=== PATIENT | male | born 1990 | race Caucasian/White ===

== ENCOUNTER 2021-12-19 16:15 | Emergency (ER) | payer BC, SELFPAY ==
[2021-12-19 16:17] VITALS: BP 148/84; PULSE 91; RESP 16; TEMP 36.3; O2SAT 99
--- NOTE | 2021-12-19 16:38 | ED.GENADULT ---
HPI - General Adult General Chief complaint: Unspecified Stated complaint: muscles all cramping Time Seen by Provider: 12/19/21 16:26 Source: patient Mode of arrival: ambulatory Limitations: no limitations History of Present Illness HPI narrative: 31-year-old male presents to the emergency room secondary to an episode where he felt like he could not breathe. He is from the [facility] and him and his body were down in this part of the [place] playing golf over the weekend. He states that they drink a lot of beer while they were playing golf. They were in the process of going home when he had an episode where he felt like he just could not breathe. He then he noticed he began having tingling to his arms and legs and his fingers began to contract. He states he tried to slow down his breathing take some deep breaths and drink more fluid. It seemed to resolve and he had 2 episodes like that today so he got concerned and did not feel safe driving home until he stopped emergency room to be checked out. He denies having episodes like this in the past. He has no medical history at all. No cough congestion no chills or fevers. Denies shortness of breath. Related Data Allergies Allergy/AdvReac Type Severity Reaction Status Date / Time No Known Allergies Allergy Verified 12/19/21 16:19 Review of Systems Review of Systems: CONSTITUTIONAL: Denies fever, chills, or sweats. EYES: Denies visual changes, redness, or discharge. ENT: Denies rhinorrhea, congestion, sore throat, or otalgia. CARDIOVASCULAR: Denies chest pain, palpitations, or edema. RESPIRATORY: Denies cough or dyspnea. GASTROINTESTINAL: Denies abdominal pain, nausea, vomiting, or diarrhea. GENITOURINARY: Denies dysuria or hematuria. SKIN: Denies rash or itching. MUSCULOSKELETAL: Denies back pain, joint pain, or myalgia. NEUROLOGIC: Denies headache, numbness, or weakness. PSYCHIATRIC: Denies anxiety or depression. [facility] Social History Social History (Updated 12/19/21 @ 16:50 by Jt Mcfadden DO) Alcohol intake: current Substance use type: marijuana Exam Narrative: APPEARANCE: Well appearing, no pain in distress, well-nourished. Head normocephalic atraumtaic. EYES: PERRLA/EOMI, conjunctivae very clear. NOSE: Normal no drainage EARS:TMS clear [place] Cha, with good light reflex. THROAT: Pharynx clear, no exudate. NECK: Supple. No adenopathy, no masses. RESPIRATORY: Airway patent, repsirations nonlabored. Clear to auscultation bilaterally, no rales, rhonchi, wheezing. CARDIOVASCULAR: Regular rate and rhythm without murmurs rubs or gallops. ABDOMINAL: Soft, nontender, nondistended, no hepatosplenomegally MUSCULOSKELETAl: Moves all extremities. Strenght/ROM intact, No edema, No calf tenderness. NEURO: Alert. Cranial nerves II through XII intact. Good gait. Good coordination SKIN:: Warm, dry. Normal Color PSYCHIATRIC: Normal affect/mood, normal interaction with parents. Course Vital Signs Vital signs: Vital Signs Temperature 97.4 F L 12/19/21 16:17 Pulse Rate 91 12/19/21 16:17 Respiratory Rate 16 12/19/21 16:17 Blood Pressure 148/84 H 12/19/21 16:17 Pulse Oximetry 99 12/19/21 16:17 Temperature 97.4 F L 12/19/21 16:17 Pulse Rate 91 12/19/21 16:17 Respiratory Rate 16 12/19/21 16:17 Blood Pressure 148/84 H 12/19/21 16:17 Pulse Oximetry 99 12/19/21 16:17 Medical Decision Making MDM Narrative Medical decision making narrative: Patient's presentation is indicative of a panic attack with hyperventilation. I explained all this to the patient he has no medical history at all. Is completely normal at this time. I told him is no really no indication at this time to do an extensive work-up and evaluation. Advised him that if it happened again he can try breathing into a paper bag temporarily that generally helps with some of some. Also give him a prescription for some Ativan 1 mg just to take as needed. Vital Signs Vital Signs: Vital Signs
== END 2021-12-19 16:54 | disposition home or self-care (01) ==
LOC: ANHED 16:41
PROVIDERS: Emergency Provider Emergency Medicine
DX: F41.0 Panic disorder [episodic paroxysmal anxiety] (principal)
CPT/HCPCS: 99283